=== PATIENT | male | born 1985 | race African-American/Black ===

== ENCOUNTER 2016-11-12 16:08 | Emergency (ER) | payer OTHER ==
[~2016-11-12] VITALS: Ht 175.3 cm; Wt 61.2 kg
[~2016-11-12 16:08] MED LIST: CIPROFLOXACIN500 M1 PO; CLEOCIN HCL300 MG PO; FLEXERIL PO; IBUPROFEN 600600 M1 PO; IBUPROFEN 800800 M1 PO; NORCO 5-325 TA1 EACH PO; PENICILLIN V P500 MG PO; ZOFRAN ODT4 MG PO
[2016-11-12 16:10] VITALS: BP 125/78
[2016-11-12] MEDS ORDERED: BACTRIM DS TAB1 EACH PO (16:21)
[2016-11-12] MEDS ORDERED: BACTROBAN CREAM30 G1 TOP (16:21)
== END 2016-11-12 16:41 | disposition home or self-care (01) ==
LOC: ER 16:08
DX: H00.032 Abscess of right lower eyelid (principal); F17.210 Nicotine dependence, cigarettes, uncomplicated; F10.99 Alcohol use, unspecified with unspecified alcohol-induced disorder

== ENCOUNTER 2019-11-04 10:00 | Emergency (ER) | payer OTHER ==
[~2019-11-04] VITALS: Ht 175.3 cm; Wt 61.2 kg
[~2019-11-04 10:00] MED LIST changes: +BACTRIM DS TAB1 EACH PO; +BACTROBAN CREAM30 G1 TOP
[2019-11-04 10:45] LABS: ABSOLUTE NEUTROPHILS 9.3 thou/uL (1.4-8.2); BASOPHILS 0.6 % (0.0-2.0); EOSINOPHILS 0.1 % (0.0-3.0); HEMATOCRIT 44.8 % (42.0-52.0); HEMOGLOBIN 14.9 gm/dL (14.0-18.0); MCH 30.6 pg (26.0-34.0); MCHC 33.2 g/dL (28.0-37.0); MCV 92.4 fL (80.0-100.0); MONOCYTES 2.6 % (1.0-8.0); PLATELET COUNT 255 thou/uL (150-400); POLYS 88.7 % (36.0-66.0); RBC 4.85 mil/uL (4.50-6.00); RDW 13.3 % (10.5-14.5); WBC 10.5 thou/uL (4.0-11.0)
[2019-11-04 10:49] LABS: CALCIUM 9.8 mg/dL (8.5-10.1); CREATININE 0.8 mg/dL (0.7-1.3); MAGNESIUM 1.9 mg/dL (1.8-2.4); POTASSIUM 4.2 mmol/L (3.5-5.1)
[2019-11-04] MEDS ORDERED: ZOFRAN ODT4 MG PO (11:01)
[2019-11-04 11:45] VITALS: BP 141/64
== END 2019-11-04 11:45 | disposition home or self-care (01) ==
LOC: ER 10:00
PROVIDERS: Emergency Medicine
DX: K59.00 Constipation, unspecified (principal); R11.2 Nausea with vomiting, unspecified; F17.210 Nicotine dependence, cigarettes, uncomplicated